=== PATIENT | male | born 1955 | race Caucasian/White ===

== ENCOUNTER 2017-07-12 10:27 | Day surgery (SDC) | payer MEDICAID ==
[~2017-07-12] VITALS: Ht 172.7 cm; Wt 88.6 kg
[2017-07-12 10:58] LABS: BASOPHILS 0.2 % (0-2); EOSINOPHILS 0.7 % (0-7); HEMATOCRIT 43.4 % (42.0-54.0); HEMOGLOBIN 15.3 g/dL (13.5-17.5); IMMATURE GRANULOCYTES 0.3 % (0-5); LYMPHOCYTES 23.2 % (15-50); MCH 31.9 pg (26.0-34.0); MCHC 35.3 g/dL (31.0-37.0); MCV 90.6 fL (80.0-100.0); MEAN PLATELET VOLUME 9.8 fL (7.4-10.4); MONOCYTES 8.8 % (2-11); NEUTROPHILS 66.8 % (40-80); PLATELET COUNT 272 10x3/uL (130-400); RBC 4.79 10x6/uL (4.20-6.10); RDW 12.7 % (11.5-14.5); WBC 18.2 10x3/uL (4.8-10.8)
[2017-07-12 11:21] LABS: ALBUMIN 4.1 g/dL (3.4-5.0); ANION GAP 14.1 mmol/L (8-16); BILIRUBIN - TOTAL 0.96 mg/dL (0.2-1.3); CALCIUM 8.7 mg/dL (8.5-10.1); CREATININE - SERUM 1.1 mg/dL (0.6-1.3); POTASSIUM - SERUM 4.1 mmol/L (3.5-5.1); PROTEIN - SERUM 7.8 g/dL (6.4-8.2)
[2017-07-12 11:53] LABS: APPEARANCE CLEAR (CLEAR); BILIRUBIN NEGATIVE (NEGATIVE); COLOR YELLOW (YELLOW); GLUCOSE NEGATIVE (NEGATIVE); KETONE SMALL mg/dL (NEGATIVE); LEUKOCYTE ESTERASE NEGATIVE (NEGATIVE); NITRITE NEGATIVE (NEGATIVE); PROTEIN NEGATIVE (NEGATIVE); UROBILINOGEN NORMAL (NORMAL)
[2017-07-12 18:16] VITALS: BP 135/76
[2017-07-13] VITALS: BP 113/70
[2017-07-13 04:00] VITALS: BP 121/62
[2017-07-13 05:36] LABS: BASOPHILS 0 % (0-2); EOSINOPHILS 0 % (0-7); HEMATOCRIT 40.5 % (42.0-54.0); IMMATURE GRANULOCYTES 0.1 % (0-5); LYMPHOCYTES 10.3 % (15-50); MCH 31.5 pg (26.0-34.0); MCHC 34.6 g/dL (31.0-37.0); MEAN PLATELET VOLUME 9.9 fL (7.4-10.4); MONOCYTES 2.8 % (2-11); NEUTROPHILS 86.8 % (40-80); PLATELET COUNT 241 10x3/uL (130-400); RBC 4.45 10x6/uL (4.20-6.10); RDW 12.6 % (11.5-14.5)
[2017-07-13 05:47] LABS: WBC 9.7 10x3/uL (4.8-10.8)
[2017-07-13] MEDS ORDERED: HYDROCODONE-APA1 TAB PO (05:50)
[2017-07-13 05:53] LABS: ALBUMIN 3.4 g/dL (3.4-5.0); BILIRUBIN - TOTAL 0.48 mg/dL (0.2-1.3); CALCIUM 8.7 mg/dL (8.5-10.1); CARBON DIOXIDE 27.3 mmol/L (21.0-32.0); CREATININE - SERUM 1.1 mg/dL (0.6-1.3); MAGNESIUM - SERUM 2.1 mg/dL (1.8-2.4); POTASSIUM - SERUM 4.3 mmol/L (3.5-5.1); PROTEIN - SERUM 7.4 g/dL (6.4-8.2)
[2017-07-13 05:59] VITALS: Ht 172.7 cm; Wt 88.6 kg
[2017-07-13] MEDS ORDERED: PROTONIX40 MG PO (06:04)
[2017-07-13 08:53] VITALS: BP 134/78
--- NOTE | 2017-07-13 10:45 | NUR ---
PT SITTING IN CHAIR AT THIS TIME. HAS BEEN WALKING AROUND THE UNIT. WAITING FOR DISCHARGE PAPERS.
[2017-07-13] MEDS ORDERED: HYDROCODON-ACE1 EAC7 PO (11:39)
--- NOTE | 2017-07-13 11:59 | NUR ---
PERIPHERAL IV REMOVED WITH CATHETER INTACT. DISCHARGE INSTRUCTIONS GIVEN. PT REFUSED WHEEL CHAIR. WALKED OUT WITH HIS .
--- NOTE | 2017-07-15 11:49 | HP ---
PATIENT: JUAN TOMLINSON MEDICAL RECORD: [id number] ACCOUNT: [id number] LOCATION:[facility] : 57 ADMISSION DATE: 07/12/17 HISTORY AND PHYSICAL EXAMINATION CHIEF COMPLAINT: Pain. HISTORY OF PRESENT ILLNESS: I personally discussed this case with Dr. Geo Albert. The patient had onset of symptoms one day ago. Symptoms have come on gradually. They have worsened. They are nonradiating. The patient has a right lower quadrant tenderness with peritonitis to percussion. I personally reviewed the CT images. I personally reviewed the CT report. Palpation aggravates. Nothing alleviates. I recommend laparoscopic appendectomy. The risks, possible complications and alternatives to procedure were explained to the patient. He elects to proceed. The discussion specifically included, but was not limited to, bleeding requiring an emergency reoperation, infection, intestinal injury as well as an open procedure. REVIEW OF SYSTEMS: No chest pain, no shortness of breath. Positive for abdominal pain, no diarrhea, no constipation, positive for nausea. No dysuria, no back pain. No headache. Review of systems is negative other than as is described above. ALLERGIES: No known drug allergies. FAMILY HISTORY: His son had appendicitis, which had ruptured. HOME MEDICATIONS: Acetaminophen/hydrocodone. PHYSICAL EXAMINATION: GENERAL: The patient does not appear acutely ill. He does not appear chronically ill. VITAL SIGNS: Reviewed. HEAD: External ears appear normal. EYES: Extraocular movements are intact. NECK: Trachea is midline. CHEST: No intercostal retractions. PULMONARY: Nonlabored, no stridor. ABDOMEN: Right lower quadrant tenderness with guarding. There is peritonitis to percussion. Grossly, abdomen is nontender. EXTREMITIES: No peripheral cyanosis. INTEGUMENT: No rash, no ulcerations. NEUROLOGIC: Nonfocal, no lethargy. The patient answers questions appropriately, moves all extremities well. BACK: No thoracic kyphosis. LYMPHATICS: No lymphangitic streaking of the exposed extremities. PSYCHIATRIC: Normal affect. LABORATORY DATA: Has been reviewed. IMPRESSION: Acute appendicitis without rupture. PLAN: Observation bed. IV antibiotics. Laparoscopic appendectomy. Possible open procedure. HISTORY AND PHYSICAL [id number] JUAN TOMLINSON TRANSINT:[id number] Voice Confirmation ID: [id number] DOCUMENT ID: [id number] MELANIE DEL RIO MD at 1143 CC: [id number] DICTATION DATE: 07/12/17 1533 HEALTH CARE ANALYST: 07/12/17 1549 [facility] 07/13/17 [facility] [address] [id number]
--- NOTE | 2017-07-15 11:49 | OP ---
PATIENT NAME: JUAN TOMLINSON MEDICAL RECORD: [id number] :57 LOCATION:[facility] ADMISSION DATE: SURGEON: MELANIE DEL RIO MD DATE OF OPERATION: 07/12/2017 PREOPERATIVE DIAGNOSIS: Acute appendicitis. POSTOPERATIVE DIAGNOSES: Acute appendicitis with localized peritonitis. PROCEDURE: Laparoscopic appendectomy. SURGEON: Melanie Del Rio MD. ENVIRONMENTAL SERVICE AIDE: None. BLOOD LOSS: Minimal. ANESTHESIA: General. COMPLICATIONS: None. The risks, possible complications and alternatives to the procedure were explained to the patient. He elects to proceed. OPERATIVE COURSE: The patient was conveyed to the operating room urgently on 07/12/2017. General anesthesia was induced by the anesthesia staff. The abdomen was sterilely prepped and draped. A small skin eliecer was accomplished in the left upper quadrant. Veress needle was inserted through the skin eliecer into the peritoneal cavity. CO2 insufflation was begun. Once a sufficient pneumoperitoneum had been achieved, a 5-mm trocar was inserted through an incision in the left lower quadrant. Under direct internal vision utilizing a television camera, a 12-mm trocar was inserted through an incision at the umbilicus. Another 5-mm trocar was inserted through an incision in the right lower quadrant. During insertion of the Veress needle and all trocars, there appeared to have been no injury to the bowels, any intraperitoneal or retroperitoneal structures. Abdominal survey was undertaken. The appendix did have some exudate on it. There was localized peritonitis. There was no rupture. No abscess. The appendix was grasped and retracted anteriorly. I then took down the mesoappendix utilizing the EnSeal device. I then stapled across the tip of the cecum with an Endo-ELIJAH type stapler with blue loads. The appendix was placed within Endobag retrieval device and was withdrawn through the umbilical fascial defect. The 12-mm trocars were placed and the abdomen reinsufflated. I irrigated and aspirated the right lower quadrant. There was no bleeding even at low pressure of 8. All trocars were removed and the abdomen desufflated. The umbilical fascia was closed with multiple interrupted 0 Vicryl sutures. The umbilical skin was approximated with a single 3-0 Vicryl suture and then multiple 4-0 Vicryl Rapide sutures. The other 2 trocar sites were closed with interrupted 3-0 intracuticular Vicryls. Benzoin and Steri-Strips were applied. OPERATIVE REPORT [id number] JUAN TOMLINSON The patient was then extubated and conveyed to post-anesthesia care unit where he was in stable condition. TRANSINT:[id number] Voice Confirmation ID: [id number] DOCUMENT ID: [id number] MELANIE DEL RIO MD at 1149 CC: TANYA HARKINS [id number] DICTATION DATE: 07/12/171746 GRADING CLERK: 07/12/172033 [facility] 07/13/[address] [id number]
== END 2017-07-13 14:34 | disposition home or self-care (01) ==
LOC: D.OPS 10:27 → D.ER 10:27 → EDSTATUS 10:30 → D.MS 17:58 → D.OPS 07-13 14:34
PROVIDERS: Emergency Medicine; Surgery
DX: K35.80 Unspecified acute appendicitis (principal); K21.9 Gastro-esophageal reflux disease without esophagitis; Z01.812 Encounter for preprocedural laboratory examination